=== PATIENT | female | born 1935 | race Caucasian/White ===

== ENCOUNTER 2017-11-10 17:07 | Emergency (ER) | payer OTHER ==
[~2017-11-10] VITALS: Ht 142.2 cm; Wt 60.3 kg
[~2017-11-10 17:07] MED LIST: SYNTHROID100 MCG PO; SYNTHROID125 MCG PO; SYNTHROID150 MCG PO
== END 2017-11-10 21:41 | disposition home or self-care (01) ==
LOC: ER 17:07
DX: S52.121A Displaced fracture of head of right radius, initial encounter for closed fracture (principal); W18.09XA Striking against other object with subsequent fall, initial encounter; Y93.89 Activity, other specified; Y92.018 Other place in single-family (private) house as the place of occurrence of the external cause; Y99.8 Other external cause status

== ENCOUNTER 2018-05-24 11:25 | Emergency (ER) | payer OTHER ==
[~2018-05-24] VITALS: Ht 147.3 cm; Wt 63.5 kg
== END 2018-05-24 16:00 | disposition home or self-care (01) ==
LOC: ER 11:25
DX: M54.31 Sciatica, right side (principal)